=== PATIENT | female | born 1975 | race American Indian/Alaskan Native ===

== ENCOUNTER 2019-05-30 09:04 | Inpatient (IN) | payer SELFPAY ==
[2019-05-30 09:52] LABS: Basophils % (Auto) 0.1 % (0.0-1.8); Eosinophils % (Auto) 0.2 % (0.0-4.3); Hematocrit 39.7 % (30.3-42.9); Hemoglobin 13.2 gm/dl (10.1-14.3); Lymphocytes # (Auto) 1.8 K/mm3 (1.2-5.4); Lymphocytes % (Auto) 29.7 % (13.4-35.0); Mean Corpuscular HGB Conc 33 % (30-34); Mean Corpuscular Volume 88 fl (79-97); Monocytes # (Auto) 0.4 K/mm3 (0.0-0.8); Monocytes % (Auto) 6.5 % (0.0-7.3); Platelet Count 220 K/mm3 (140-440)
[2019-05-30 10:12] LABS: Alanine Aminotransferase 42 units/L (7-56); Albumin 3.7 g/dL (3.9-5); BUN/Creatinine Ratio 22; Blood Urea Nitrogen 13 mg/dL (7-17); Calcium 9.9 mg/dL (8.4-10.2); Hemolysis Index 8
[2019-05-30] MEDS ORDERED: ZOFRAN IV ONE (10:16)
[2019-05-30] MEDS ORDERED: HumuLIN R IV ONE (10:16)
[2019-05-30] MEDS ORDERED: NACL 0.9% 1000 ML 1,000 ML IV ONE ×2 (10:16→12:35)
--- NOTE | 2019-05-30 10:20 | Emergency Department Report ---
ED General Adult HPI - General Chief complaint: Nausea/Vomiting/Diarrhea Stated complaint: LIGHTHEADED/DIZZINESS/SOB Time Seen by Provider: 05/30/19 10:12 Source: patient Mode of arrival: Ambulatory Limitations: No Limitations - History of Present Illness Initial comments: Patient is 44 years old female with history of hypertension and diabetes. Patient is noncompliant with her medication. Patient stated that the last time she took her insulin was 3 years ago. Patient presented to the ER complaining of generalized weakness and not feeling good associated with some dizziness. Patient is also complaining of nausea vomiting. Patient denied any fever or chills recently. Patient also denied any loss of consciousness, focal weakness numbness or tingling sensation. - Related Data Previous Rx's Medication Instructions Recorded Last Taken Type Butalb/Acetamin/Caff 50-325-40 2 tab PO Q8HR PRN #10 tablet 08/10/17 Unknown Rx [Fioricet] amLODIPine [Norvasc] 5 mg PO DAILY #90 tab 08/10/17 Unknown Rx Allergies Allergy/AdvReac Type Severity Reaction Status Date / Time No Known Allergies Allergy Verified 05/30/19 09:07 ED Review of Systems ROS: Stated complaint: LIGHTHEADED/DIZZINESS/SOB Other details as noted in HPI Comment: All other systems reviewed and negative Constitutional: denies: chills, fever ENT: denies: ear pain Cardiovascular: palpitations. denies: chest pain Gastrointestinal: nausea, vomiting. denies: abdominal pain, diarrhea, constipation, hematemesis, melena, hematochezia Musculoskeletal: denies: back pain Neurological: weakness. denies: headache, numbness, paresthesias, confusion, abnormal gait ED Past Medical Hx - Past Medical History Hx Hypertension: Yes Hx Diabetes: Yes - Surgical History Additional Surgical History: Back surgery, - Social History Smoking Status: Current Some Day Smoker Substance Use Type: Alcohol - Medications Home Medications: Home Medications Medication Instructions Recorded Confirmed Last Taken Type Butalb/Acetamin/Caff 50-325-40 2 tab PO Q8HR PRN #10 tablet 08/10/17 Unknown Rx [Fioricet] amLODIPine [Norvasc] 5 mg PO DAILY #90 tab 08/10/17 Unknown Rx ED Physical Exam - General Limitations: No Limitations General appearance: alert, in no apparent distress - Head Head exam: Present: atraumatic, normocephalic, normal inspection - ENT ENT exam: Present: mucous membranes dry - Neck Neck exam: Present: normal inspection, full ROM. Absent: tenderness, meningismus, lymphadenopathy, thyromegaly - Respiratory Respiratory exam: Present: normal lung sounds bilaterally - Cardiovascular Cardiovascular Exam: Present: tachycardia. Absent: systolic murmur, diastolic murmur, rubs, gallop - GI/Abdominal GI/Abdominal exam: Present: soft, normal bowel sounds. Absent: distended, tenderness, guarding, rebound, rigid, organomegaly, mass, bruit, pulsatile mass, hernia - Extremities Exam Extremities exam: Present: normal inspection, full ROM, normal capillary refill. Absent: tenderness, pedal edema, joint swelling, calf tenderness - Back Exam Back exam: Present: normal inspection, full ROM. Absent: CVA tenderness (R), CVA tenderness (L), muscle spasm, paraspinal tenderness, vertebral tenderness, rash noted - Neurological Exam Neurological exam: Present: alert, oriented X3, CN II-XII intact, normal gait, reflexes normal - Psychiatric Psychiatric exam: Present: normal mood - Skin Skin exam: Present: warm, intact, normal color ED Course Vital Signs 05/30/19 05/30/19 05/30/19 09:15 09:52 10:00 Temperature 98.3 F Pulse Rate 134 H 122 H 123 H Respiratory 16 20 15 Rate Blood Pressure 139/83 Blood Pressure 158/60 [Left] O2 Sat by Pulse 98 99 Oximetry 05/30/19 05/30/19 05/30/19 10:15 10:30 10:45 Temperature Pulse Rate 124 H 116 H 122 H Respiratory 11 L 24 20 Rate Blood Pressure 150/88 139/79 139/79 Blood Pressure [Left] O2 Sat by Pulse 98 99 Oximetry 05/30/19 05/30/19 05/30/19 11:00 11:15 11:30 Temperature Pulse Rate 125 H 126 H 126 H Respiratory 20 25 H 20 Rate Blood Pressure 141/70 155/62 133/63 Blood Pressure [Left] O2 Sat by Pulse 100 98 Oximetry 05/30/19 05/30/19 05/30/19 11:45 12:01 12:15 Temperature Pulse Rate 134 H 132 H Respiratory 17 14 10 L Rate Blood Pressure 133/64 133/64 133/64 Blood Pressure [Left] O2 Sat by Pulse 97 97 99 Oximetry 05/30/19 05/30/19 05/30/19 12:31 13:30 13:44 Temperature 99.1 F Pulse Rate 130 H Respiratory 16 16 Rate Blood Pressure 133/64 139/86 Blood Pressure [Left] O2 Sat by Pulse 98 100 99 Oximetry 05/30/19 05/30/19 05/30/19 13:45 14:00 14:15 Temperature Pulse Rate 128 H 126 H 126 H Respiratory 19 17 18 Rate Blood Pressure 139/86 166/93 171/93 Blood Pressure [Left] O2 Sat by Pulse 97 93 Oximetry 05/30/19 05/30/19 05/30/19 14:30 14:45 15:00 Temperature Pulse Rate 125 H 122 H 121 H Respiratory 18 17 17 Rate Blood Pressure 171/91 171/91 172/97 Blood Pressure [Left] O2 Sat by Pulse 95 98 Oximetry 05/30/19 05/30/19 05/30/19 15:15 15:31 15:45 Temperature Pulse Rate 124 H 121 H 120 H Respiratory 17 17 29 H Rate Blood Pressure 195/100 149/81 149/81 Blood Pressure [Left] O2 Sat by Pulse 95 94 100 Oximetry 05/30/19 05/30/19 05/30/19 16:00 16:15 16:30 Temperature Pulse Rate 115 H 113 H 114 H Respiratory 17 15 18 Rate Blood Pressure 114/68 128/71 114/69 Blood Pressure [Left] O2 Sat by Pulse 96 Oximetry ED Medical Decision Making - Lab Data Result diagrams: 05/30/19 09:31 05/30/19 09:31 - EKG Data -: EKG Interpreted by Wa EKG shows normal: sinus rhythm Rate: normal - EKG Data Interpretation: no acute changes - Radiology Data Radiology results: report reviewed - Medical Decision Making Patient is 44 years old female with history of hypertension and diabetes. Patient is noncompliant with her medication. Patient stated that the last time she took her insulin was 3 years ago. Patient presented to the ER complaining of generalized weakness and not feeling good associated with some dizziness. Patient is also complaining of nausea vomiting. Patient denied any fever or chills recently. Patient also denied any loss of consciousness, focal weakness numbness or tingling sensation. Patient received 2 L of normal saline, regular insulin. Patient found to be in acute thyrotoxicosis. Patient received labetalol and PTU. Critical care attestation.: If time is entered above; I have spent that time in minutes in the direct care of this critically ill patient, excluding procedure time. ED Disposition Clinical Impression: Nausea & vomiting, Hyperglycemia, Thyrotoxicosis Disposition: OP ADMIT IP TO THIS HOSP Is pt being admited?: Yes Condition: Stable
--- NOTE | 2019-05-30 11:43 | XRay Report ---
CHEST 1 VIEW 05/30/2019 10:20 AM INDICATION / CLINICAL INFORMATION: Hyperglycemia. COMPARISON: None available. FINDINGS: SUPPORT DEVICES: None. HEART / MEDIASTINUM: No significant abnormality. LUNGS / PLEURA: No significant pulmonary or pleural abnormality. No pneumothorax. ADDITIONAL FINDINGS: No significant additional findings. IMPRESSION: 1. No acute findings. Signer Name: Sidney Arshad MD Signed: 05/30/2019 11:39 AM Workstation Name: [id number]
[2019-05-30 13:02] LABS: Bilirubin,Urine NEG (Negative); Blood,Urine SM (Negative); Color,Urine Yellow (Yellow); Protein,Urine <15 mg/dL mg/dL (Negative); RBC,Urine < 1.0 /HPF (0.0-6.0); Urobilinogen,Urine < 2.0 mg/dL (<2.0)
[2019-05-30] MEDS ORDERED: MORPHINE ONE (13:38)
[2019-05-30] MEDS ORDERED: MORPHINE IV ONE (13:39)
[2019-05-30] MEDS ORDERED: TYLENOL ONE (13:39)
[2019-05-30] MEDS ORDERED: TYLENOL PO ONE (13:40)
[2019-05-30] MEDS ORDERED: NORMODYNE IV ONE (15:22)
[2019-05-30 16:31] LABS: Free T4 (Free Thyroxine) 7.63 ng/dL (0.76-1.46)
[2019-05-30] MEDS ORDERED: IBUPROFEN PO ONE ×2 (16:48)
--- NOTE | 2019-05-30 17:46 | Cat Scan Report ---
CT ABDOMEN AND PELVIS WITH CONTRAST HISTORY: Nausea and vomiting for 3 days COMPARISON: None TECHNIQUE: Routine abdominal and pelvic CT exam performed with IV contrast. The patient received 100 mL of IV Omnipaque 300. All CT scans at this location are performed using CT dose reduction for ALARA by means of automated exposure control. FINDINGS: CT ABDOMEN: Lung Bases: No significant abnormality. Liver: No significant abnormality. Biliary: No significant abnormality. Spleen: No significant abnormality. Unenlarged. Pancreas: No significant abnormality. Adrenals: No significant abnormality. Kidneys: No significant abnormality. Lymphatics: No lymphadenopathy. Vasculature: Atherosclerotic but nonaneurysmal abdominal aorta. Bowel/Peritoneum: Nonobstructive bowel. Sigmoid diverticulosis without mesocolonic fat stranding. No free air. No free fluid. Normal appendix. CT PELVIC: : No significant abnormality. Lymphatics: No lymphadenopathy. Osseous Structures: No aggressive appearing osseous lesions. Additional Findings: None IMPRESSION: 1. No acute findings. 2. Sigmoid diverticulosis without diverticulitis. Signer Name: Sidney Arshad MD Signed: 05/30/2019 5:42 PM Workstation Name: [id number]
[2019-05-30] MEDS: TAPAZOLE PO SCH (18:27)
[2019-05-30] MEDS: PROPYLTHIOURACIL PO SCH (20:13)
[2019-05-30] MEDS ORDERED: SODIUM CHLORIDE FLUSH SYRINGE 10 ML IV PRN (20:26)
[2019-05-30] MEDS ORDERED: TYLENOL PO PRN (20:26)
--- NOTE | 2019-05-30 20:30 | History and Physical Report ---
History of Present Illness Chief complaint: I feel dizzy, and I just have not been feeling good History of present illness: 44 YO Female with HTN, DM, Nicotine Dependence, Medication Noncompliance presents to ED for evaluation. Pt states that she has experienced generalized weakness, nausea, dizziness, heat intolerance, nausea, and multiple episodes of vomiting over the past 1 week. Pt acknowledges subjective weight loss, and inability to gain weight. Pt transported to [facility] via private vehicle. Pt seen and evaluated in ED and found to have Thyrotoxicosis, and uncontrolled DM. Pt admitted to medical floor. No prior admission for review. No medication listed for reconciliation at time of admission. Past History Past Medical History: diabetes, hypertension Past Surgical History: Social history: single, smoking Family history: hypertension Medications and Allergies Allergies Allergy/AdvReac Type Severity Reaction Status Date / Time No Known Allergies Allergy Verified 05/30/19 09:07 Home Medications Medication Instructions Recorded Confirmed Last Taken Type Butalb/Acetamin/Caff 50-325-40 2 tab PO Q8HR PRN #10 tablet 08/10/17 Unknown Rx [Fioricet] amLODIPine [Norvasc] 5 mg PO DAILY #90 tab 08/10/17 Unknown Rx Active Meds: Active Medications Acetaminophen (Tylenol) 650 mg PO Q4H PRN PRN Reason: Pain MILD(1-3)/Fever >100.5/FITZGERALD Methimazole (Tapazole) 10 mg PO Q24HR [facility] Last Admin: 05/30/19 18:27 Dose: 10 mg Documented by: Ondansetron HCl (Zofran) 4 mg IV Q8H PRN PRN Reason: Nausea And Vomiting Propylthiouracil (Propylthiouracil) 50 mg PO TID [facility] Last Admin: 05/30/19 20:13 Dose: 50 mg Documented by: Sodium Chloride (Sodium Chloride Flush Syringe 10 Ml) 10 ml IV BID [facility] Sodium Chloride (Sodium Chloride Flush Syringe 10 Ml) 10 ml IV PRN PRN PRN Reason: LINE FLUSH Review of Systems Constitutional: weight loss, weakness, no fever, no chills Ears, nose, mouth and throat: no ear pain, no ear discharge, no tinnitis, no decreased hearing, no nose pain Breasts: no change in shape, no swelling, no mass Cardiovascular: no chest pain, no orthopnea, no palpitations, no rapid/irregular heart beat, no edema, no lightheadedness Respiratory: no cough, no cough with sputum, no shortness of breath Gastrointestinal: nausea, vomiting, no abdominal pain, no change in bowel habits Genitourinary Female: no dysmenorrhea, no pelvic pain, no dysuria, no stress incontinence, no post void dribbling, no incomplete emptying, no mixed incontinence Rectal: no pain, no incontinence, no bleeding Musculoskeletal: no neck stiffness, no neck pain, no shooting arm pain, no arm numbness/tingling, no low back pain, no leg numbness/tingling Integumentary: no rash, no pruritis, no redness, no sores, no wounds, no jaundice, no boils Neurological: no transient paralysis, no paralysis, no weakness, no parathesias, no tingling, no seizures, no syncope Psychiatric: no anxiety, no memory loss, no change in sleep habits, no sleep disturbances, no insomnia, no hypersomnia, no change in appetite Endocrine: heat intolerance, excessive sweating, flushing, weight change, thyroid mass, palpatations Hematologic/Lymphatic: no easy bruising, no easy bleeding, no lymphadenopathy, no lymphedema Allergic/Immunologic: no urticaria, no allergic rhinitis, no wheezing, no p ersistent infections, no anaphylaxis Exam - Constitutional Vitals: Temp Pulse Resp BP Pulse Ox 99.1 F 117 H 19 132/79 100 05/30/19 13:44 05/30/19 17:21 05/30/19 17:21 05/30/19 16:45 05/30/19 17:21 General appearance: Present: mild distress - EENT Eyes: Present: PERRL ENT: hearing intact, clear oral mucosa, other (thyromegaly, Positive Marty Sign) - Neck Neck: Present: supple, normal ROM - Respiratory Respiratory effort: normal Respiratory: bilateral: CTA - Cardiovascular Heart Sounds: Present: S1 & S2. Absent: rub, click - Extremities Extremities: pulses symmetrical, No edema Peripheral Pulses: within normal limits - Abdominal General gastrointestinal: Present: soft, non-tender, non-distended, normal bowel sounds Female genitourinary: Present: normal - Integumentary Integumentary: Present: clear, warm, dry - Musculoskeletal Musculoskeletal: gait normal, strength equal bilaterally - Psychiatric Psychiatric: appropriate mood/affect, intact judgment & insight - Neurologic Neurologic: CNII-XII intact, moves all extremities Results - Labs CBC & Chem 7: 05/31/19 04:40 05/31/19 04:40 Labs: Abnormal lab results 05/30/19 05/30/19 05/30/19 Range/Units 09:22 09:31 10:37 Sodium 134 L (137-145) mmol/L Chloride 93.4 L (98-107) mmol/L Creatinine 0.6 L (0.7-1.2) mg/dL Glucose 483 H (65-100) mg/dL POC Glucose 473 H (70-105) Albumin 3.7 L (3.9-5) g/dL Lipase 71 H (13-60) units/L TSH (0.270-4.200) mlU/mL Free T4 (0.76-1.46) ng/dL 05/30/19 05/30/19 05/30/19 Range/Units 11:28 15:38 19:59 Sodium (137-145) mmol/L Chloride (98-107) mmol/L Creatinine (0.7-1.2) mg/dL Glucose (65-100) mg/dL POC Glucose 222 H 332 H (70-105) Albumin (3.9-5) g/dL Lipase (13-60) units/L TSH < 0.005 L (0.270-4.200) mlU/mL Free T4 7.63 H (0.76-1.46) ng/dL Assessment and Plan - Patient Problems (1) Thyrotoxicosis Current Visit: Yes Status: Acute Qualifiers: Thyrotoxic crisis or storm presence: without thyrotoxic crisis or storm Plan to address problem: IVF resuscitation therapy, thyroid panel, Propanolol scheduled, supportive care, Outpatient endocrinology F/U care,Methimazole daily (2) Diabetes Current Visit: Yes Status: Acute Plan to address problem: ADA diet, sliding scale insulin, accu check, hypoglycemia protocol (3) HTN (hypertension) Current Visit: Yes Status: Acute Qualifiers: Hypertension type: essential hypertension Qualified Code(s): I10 - Essential (primary) hypertension Plan to address problem: monitor bp q shift, supportive care, B nikole therapy (4) Nicotine dependence Current Visit: Yes Status: Acute Qualifiers: Substance use status: in withdrawal Plan to address problem: smoking cessation counseling, +15 minutes, supportive care. (5) DVT prophylaxis Current Visit: Yes Status: Acute Plan to address problem: SCD to BLE while in bed, Pt ambulatory
[2019-05-30] MEDS ORDERED: D50W (25GM) Syringe IV PRN (20:32)
[2019-05-30] MEDS: SODIUM CHLORIDE FLUSH SYRINGE 10 ML IV SCH (23:17)
[2019-05-30] MEDS: NACL 0.45% 1000 ML 1,000 ML IV SCH (23:17)
[2019-05-30] MEDS: INDERAL PO SCH (23:18)
[2019-05-31] MEDS: HumuLIN R SUB-Q SCH ×4 (01:47→17:52)
[2019-05-31 04:53] LABS: Basophils # (Auto) 0.1 K/mm3 (0.0-0.1); Basophils % (Auto) 1.4 % (0.0-1.8); Eosinophils % (Auto) 0.3 % (0.0-4.3); Hematocrit 34.2 % (30.3-42.9); Hemoglobin 11.7 gm/dl (10.1-14.3); Lymphocytes # (Auto) 1.6 K/mm3 (1.2-5.4); Lymphocytes % (Auto) 38.4 % (13.4-35.0); Mean Corpuscular HGB Conc 34 % (30-34); Mean Corpuscular Volume 87 fl (79-97); Monocytes # (Auto) 0.3 K/mm3 (0.0-0.8); Monocytes % (Auto) 7.8 % (0.0-7.3); Platelet Count 178 K/mm3 (140-440); Red Blood Count 3.95 M/mm3 (3.65-5.03); Red Cell Distribution Width 13.6 % (13.2-15.2)
[2019-05-31 05:17] LABS: Alanine Aminotransferase 59 units/L (7-56); Albumin 3.1 g/dL (3.9-5); BUN/Creatinine Ratio 23; Blood Urea Nitrogen 9 mg/dL (7-17); Calcium 9.3 mg/dL (8.4-10.2); Hemolysis Index 0
[2019-05-31] MEDS ORDERED: PEPCID PO ONE (06:45)
[2019-05-31] MEDS: NORCO 5/325 PO PRN ×2 (07:05→14:12)
[2019-05-31] MEDS: NACL 0.45% 1000 ML 1,000 ML IV SCH ×2 (07:47→17:55)
[2019-05-31] MEDS: PROPYLTHIOURACIL PO SCH ×3 (07:47→20:49)
[2019-05-31] MEDS: TAPAZOLE PO SCH (10:07)
[2019-05-31] MEDS: INDERAL PO SCH ×2 (10:07→21:55)
[2019-05-31] MEDS: SODIUM CHLORIDE FLUSH SYRINGE 10 ML IV SCH ×2 (10:09→21:57)
--- NOTE | 2019-05-31 12:01 | Progress Note ---
Assessment and Plan (1) Thyrotoxicosis Current Visit: Yes Status: Acute Qualifiers: Thyrotoxic crisis or storm presence: without thyrotoxic crisis or storm Plan to address problem: IVF resuscitation therapy, thyroid panel, Propanolol scheduled, supportive care, Outpatient endocrinology F/U care,Methimazole daily (2) Diabetes Current Visit: Yes Status: Acute Plan to address problem: ADA diet, sliding scale insulin, accu check, hypoglycemia protocol (3) HTN (hypertension) Current Visit: Yes Status: Acute Qualifiers: Hypertension type: essential hypertension Qualified Code(s): I10 - Essential (primary) hypertension Plan to address problem: monitor bp q shift, supportive care, B nikole therapy (4) Nicotine dependence Current Visit: Yes Status: Acute Qualifiers: Substance use status: in withdrawal Plan to address problem: smoking cessation counseling dine by admitting physician supportive care. (5) DVT prophylaxis Current Visit: Yes Status: Acute Plan to address problem: SCD to BLE while in bed, Pt ambulatory Subjective Date of service: 05/31/19 Objective - Constitutional Vitals: Vital Signs - 12hr 05/31/19 05/31/19 05/31/19 00:08 06:08 06:25 Temperature 98.6 F 98.6 F Pulse Rate 108 H 110 H 106 H Respiratory 18 20 18 Rate Blood Pressure 118/82 189/105 153/90 O2 Sat by Pulse 95 100 100 Oximetry 05/31/19 10:07 Temperature Pulse Rate 108 H Respiratory Rate Blood Pressure 145/85 O2 Sat by Pulse Oximetry - Labs CBC & Chem 7: 05/31/19 04:40 05/31/19 04:40 Labs: Abnormal lab results 05/30/19 05/30/19 05/31/19 Range/Units 15:38 19:59 00:14 WBC (4.5-11.0) K/mm3 Lymph % (Auto) (13.4-35.0) % Arthur % (Auto) (0.0-7.3) % Creatinine (0.7-1.2) mg/dL Glucose (65-100) mg/dL POC Glucose 332 H 307 H (70-105) AST (5-40) units/L ALT (7-56) units/L Total Protein (6.3-8.2) g/dL Albumin (3.9-5) g/dL TSH < 0.005 L (0.270-4.200) mlU/mL Free T4 7.63 H (0.76-1.46) ng/dL 05/31/19 05/31/19 05/31/19 Range/Units 04:40 04:40 06:13 WBC 4.1 L (4.5-11.0) K/mm3 Lymph % (Auto) 38.4 H (13.4-35.0) % Arthur % (Auto) 7.8 H (0.0-7.3) % Creatinine 0.4 L (0.7-1.2) mg/dL Glucose 186 H (65-100) mg/dL POC Glucose 178 H (70-105) AST 56 H (5-40) units/L ALT 59 H (7-56) units/L Total Protein 6.0 L (6.3-8.2) g/dL Albumin 3.1 L (3.9-5) g/dL TSH (0.270-4.200) mlU/mL Free T4 (0.76-1.46) ng/dL
[2019-05-31] MEDS ORDERED: FIORICET PO PRN (14:26)
--- NOTE | 2019-05-31 14:26 | Discharge Summary ---
Providers - Providers Date of Admission: 05/30/19 20:26 Date of discharge: 05/31/19 Attending physician: GEORGINA POLANCO [facility] Condition: Stable Hospital course: 44 YO Female with HTN, DM, Nicotine Dependence, Medication Noncompliance presents to ED for evaluation. Pt states that she has experienced generalized weakness, nausea, dizziness, heat intolerance, nausea, and multiple episodes of vomiting over the past 1 week. Pt acknowledges subjective weight loss, and inability to gain weight. Pt transported to [facility] via private vehicle. Pt seen and evaluated in ED and found to have Thyrotoxicosis, and uncontrolled DM. Pt admitted to medical floor. No prior admission for review. No medication listed for reconciliation at time of admission. (1) Thyrotoxicosis Current Visit: Yes Status: Acute Qualifiers: Thyrotoxic crisis or storm presence: without thyrotoxic crisis or storm Plan to address problem: Methimazole daily--5 mg po tid as outpatient (2) Diabetes Current Visit: Yes Status: Acute Plan to address problem: Not taking any medicine D/c on Metformin 500 mg po bid (3) HTN (hypertension) Current Visit: Yes Status: Acute Qualifiers: Hypertension type: essential hypertension Qualified Code(s): I10 - Essential (primary) hypertension Plan to address problem: Cont antihypertensives D/c on Amlodipine 5 mg po qd (4) Nicotine dependence Current Visit: Yes Status: Acute Qualifiers: Substance use status: in withdrawal Plan to address problem: smoking cessation counseling done by Dr Yi -admitting physician.reemphasized supportive care. Disposition: DC- TO HOME OR SELFCARE Core Measure Documentation - Palliative Care Palliative Care/ Comfort Measures: Not Applicable - Core Measures Any of the following diagnoses?: none Exam - Constitutional Vitals: Temp Pulse Resp BP Pulse Ox 99.5 F 104 H 18 182/103 99 05/31/19 12:12 05/31/19 12:12 05/31/19 12:12 05/31/19 12:12 05/31/19 12:12 General appearance: Present: no acute distress, well-nourished - EENT Eyes: Present: PERRL ENT: hearing intact, clear oral mucosa - Neck Neck: Present: supple, normal ROM - Respiratory Respiratory effort: normal Respiratory: bilateral: CTA - Cardiovascular Heart rate: 98 Rhythm: regular Heart Sounds: Present: S1 & S2. Absent: rub, click - Extremities Extremities: no ischemia, pulses intact, pulses symmetrical, No edema Peripheral Pulses: within normal limits - Abdominal General gastrointestinal: Present: soft, non-tender, non-distended, normal bowel sounds Female genitourinary: Present: normal - Integumentary Integumentary: Present: clear, warm, dry - Musculoskeletal Musculoskeletal: gait normal, strength equal bilaterally - Psychiatric Psychiatric: appropriate mood/affect, intact judgment & insight - Neurologic Neurologic: CNII-XII intact, moves all extremities Plan [facility] [Primary Care Provider] - 3-5 Days DESIRE ADAMS MD [Staff Physician] - 7 Days
[2019-05-31] MEDS: NORVASC PO SCH (16:27)
[2019-05-31] MEDS: ZOFRAN IV PRN (16:27)
[2019-06-01] MEDS ORDERED: APRESOLINE IV PRN (00:16)
[2019-06-01] MEDS: ZOFRAN IV PRN (00:22)
[2019-06-01] MEDS: HumuLIN R SUB-Q SCH ×4 (00:23→18:06)
[2019-06-01] MEDS: NORCO 5/325 PO PRN (00:27)
[2019-06-01] MEDS: PROPYLTHIOURACIL PO SCH ×2 (08:46→13:17)
[2019-06-01] MEDS: INDERAL PO SCH (09:27)
[2019-06-01] MEDS: TAPAZOLE PO SCH (09:27)
[2019-06-01] MEDS: NORVASC PO SCH (09:27)
[2019-06-01] MEDS: SODIUM CHLORIDE FLUSH SYRINGE 10 ML IV SCH (09:28)
[2019-06-01 11:52] VITALS: BP 170/94
== END 2019-06-01 18:30 | disposition home or self-care (01) | DRG 644 ==
LOC: ED 09:04 → 3A 20:26
PROVIDERS: ADMIT Internal Medicine; ATTEND Internal Medicine
DX: E05.90 Thyrotoxicosis, unspecified without thyrotoxic crisis or storm (principal); F17.213 Nicotine dependence, cigarettes, with withdrawal; I10 Essential (primary) hypertension; E11.65 Type 2 diabetes mellitus with hyperglycemia; Z91.14 Patient's other noncompliance with medication regimen; Z82.49 Family history of ischemic heart disease and other diseases of the circulatory system; Z71.6 Tobacco abuse counseling; Z79.84 Long term (current) use of oral hypoglycemic drugs
CPT/HCPCS: 36415; 71045; 74177; 80053; 81001; 82805; 82962; 83690; 84439; 84443; 84484; 84703; 85025; 93005; 93010; 96361; 96374; 96375; 99406; G0378; J1815; J2270; J2405; J7030; Q9967

== ENCOUNTER 2019-11-13 07:31 | Emergency (ER) | payer SELFPAY ==
[2019-11-13] MEDS ORDERED: SODIUM CHLORIDE 0.9% 1000 ML 1,000 ML IV ONE (08:51)
--- NOTE | 2019-11-13 08:51 | Emergency Department Report ---
ED General Adult HPI - General Chief complaint: Upper Respiratory Infection Stated complaint: HEADACHE/CHILLS/COUGH Time Seen by Provider: 11/13/19 08:47 Source: patient Mode of arrival: Ambulatory Limitations: No Limitations - History of Present Illness Initial comments: 44 YO FEMALE COMES TO ER WITH GENERALIZED ACHES, CHILLS, HEADACHE AND POOR APPETITE/WEAKNESS FOR WEEKS. SHE IS UNDER CARE OF HER PCP AND HAD LABS DRAWN ON MONDAY. THEY ARE PENDING. SHE HAS FOLLOW UP APPNT NEXT WEEK. SHE IS DIABETIC AND REPORTS TAKING HER MEDS. BS HIGH ON TRIAGE. MED REC COMPLETED DENIES CHILLS. DENIES CP DENIES SOB NO ABD PAIN NO BACK PAIN NO DYSURIA PMH DM HTN THYROID DZ RX TAPAZOLE INDERAL METFORMIN AMARYL AMBULATORY AND NON TOXIC ON ARRIVAL TO ER -: Gradual, days(s) Consistency: intermittent Improves with: none Worsens with: none Associated Symptoms: denies other symptoms Treatments Prior to Arrival: none - Related Data Previous Rx's Medication Instructions Recorded Last Taken Type Butalb/Acetamin/Caff 50-325-40 2 tab PO Q8HR PRN #10 tablet 08/10/17 Unknown Rx [Fioricet] Methimazole [Tapazole] 5 mg PO Q8H #90 tablet 05/31/19 Unknown Rx Propranolol [Inderal] 10 mg PO Q12HR #60 tablet 05/31/19 Unknown Rx amLODIPine 5 mg PO DAILY #30 tab 05/31/19 Unknown Rx metFORMIN [Glucophage] 500 mg PO BID #60 tablet 05/31/19 Unknown Rx Glimepiride [Amaryl] 1 mg PO QAM #30 tablet 06/01/19 Unknown Rx Allergies Allergy/AdvReac Type Severity Reaction Status Date / Time No Known Allergies Allergy Verified 05/30/19 09:07 ED Review of Systems ROS: Stated complaint: HEADACHE/CHILLS/COUGH Other details as noted in HPI Comment: All other systems reviewed and negative ED Past Medical Hx - Past Medical History Previous Medical History?: Yes Hx Hypertension: Yes Hx CVA: No Hx Heart Attack/AMI: No Hx Diabetes: Yes Hx Deep Vein Thrombosis: No Hx Pulmonary Embolism: No Hx GERD: No Hx Liver Disease: No Hx Renal Disease: No Hx of Cancer: No Hx Sickle Cell Disease: No Hx Arthritis: No Hx Headaches / Migraines: No Hx Seizures: No Hx Kidney Stones: No Hx Psychiatric Treatment: No Hx Asthma: No Hx COPD: No Hx Tuberculosis: No Hx Dementia: No Hx HIV: No - Surgical History Past Surgical History?: Yes Additional Surgical History: Back surgery, - Family History Family history: no significant - Social History Smoking Status: Current Some Day Smoker Substance Use Type: None - Medications Home Medications: Home Medications Medication Instructions Recorded Confirmed Last Taken Type Butalb/Acetamin/Caff 50-325-40 2 tab PO Q8HR PRN #10 tablet 08/10/17 06/01/19 Unknown Rx [Fioricet] Methimazole [Tapazole] 5 mg PO Q8H #90 tablet 05/31/19 Unknown Rx Propranolol [Inderal] 10 mg PO Q12HR #60 tablet 05/31/19 Unknown Rx amLODIPine 5 mg PO DAILY #30 tab 05/31/19 Unknown Rx metFORMIN [Glucophage] 500 mg PO BID #60 tablet 05/31/19 Unknown Rx Glimepiride [Amaryl] 1 mg PO QAM #30 tablet 06/01/19 Unknown Rx ED Physical Exam - General Limitations: No Limitations General appearance: alert, in no apparent distress - Head Head exam: Present: atraumatic, normocephalic - Eye Eye exam: Present: normal appearance - ENT ENT exam: Present: mucous membranes moist - Neck Neck exam: Present: normal inspection - Respiratory Respiratory exam: Present: normal lung sounds bilaterally. Absent: respiratory distress - Cardiovascular Cardiovascular Exam: Present: regular rate, normal rhythm. Absent: systolic murmur, diastolic murmur, rubs, gallop - GI/Abdominal GI/Abdominal exam: Present: soft, normal bowel sounds - Extremities Exam Extremities exam: Present: normal inspection - Back Exam Back exam: Present: normal inspection - Neurological Exam Neurological exam: Present: alert, oriented X3 - Psychiatric Psychiatric exam: Present: normal affect, normal mood - Skin Skin exam: Present: warm, dry, intact, normal color. Absent: rash ED Course Vital Signs 11/13/19 11/13/19 07:45 11:58 Temperature 98.2 F 98.3 F Pulse Rate 119 H 97 H Respiratory 18 18 Rate Blood Pressure 136/88 139/85 [Right] O2 Sat by Pulse 98 99 Oximetry ED Medical Decision Making - Lab Data Result diagrams: 11/13/19 09:04 11/13/19 09:04 - EKG Data EKG shows normal: sinus rhythm Rate: normal - EKG Data When compared to previous EKG there are: no significant change Interpretation: no acute changes - Radiology Data Radiology results: report reviewed, image reviewed - Medical Decision Making Lab Results 11/13/19 11/13/19 11/13/19 Range/Units 09:04 09:04 09:04 WBC 3.7 L (4.5-11.0) K/mm3 RBC 4.58 (3.65-5.03) M/mm3 Hgb 14.5 H (10.1-14.3) gm/dl Hct 42.8 (30.3-42.9) % MCV 93 (79-97) fl MCH 32 (28-32) pg MCHC 34 (30-34) % RDW 14.7 (13.2-15.2) % Plt Count 198 (140-440) K/mm3 Lymph % (Auto) 20.9 (13.4-35.0) % Graham % (Auto) 11.2 H (0.0-7.3) % Eos % (Auto) 0.1 (0.0-4.3) % Baso % (Auto) 0.6 (0.0-1.8) % Lymph # 0.8 L (1.2-5.4) K/mm3 Graham # 0.4 (0.0-0.8) K/mm3 Eos # 0.0 (0.0-0.4) K/mm3 Baso # 0.0 (0.0-0.1) K/mm3 Seg Neutrophils % 67.2 (40.0-70.0) % Seg Neutrophils # 2.5 (1.8-7.7) K/mm3 VBG pH (7.320-7.420) Sodium 137 (137-145) mmol/L Potassium 3.8 (3.6-5.0) mmol/L Chloride 100.6 (98-107) mmol/L Carbon Dioxide 19 L (22-30) mmol/L Anion Gap 21 mmol/L BUN 15 (7-17) mg/dL Creatinine 1.2 (0.7-1.2) mg/dL Estimated GFR 59 ml/min BUN/Creatinine Ratio 13 % Glucose 302 H (65-100) mg/dL Calcium 9.1 (8.4-10.2) mg/dL Total Bilirubin 0.30 (0.1-1.2) mg/dL AST 42 H (5-40) units/L ALT 41 (7-56) units/L Alkaline Phosphatase 82 (35-129) units/L Troponin T < 0.010 (0.00-0.029) ng/mL Total Protein 7.5 (6.3-8.2) g/dL Albumin 3.8 L (3.9-5) g/dL Albumin/Globulin Ratio 1.0 % TSH 2.930 (0.270-4.200) mlU/mL Urine Color (Yellow) Urine Turbidity (Clear) Urine pH (5.0-7.0) Ur Specific [place] (1.003-1.030) Urine Protein (Negative) mg/dL Urine Glucose (UA) (Negative) mg/dL Urine Ketones (Negative) mg/dL Urine Blood (Negative) Urine Nitrite (Negative) Urine Bilirubin (Negative) Urine Urobilinogen (<2.0) mg/dL Ur Leukocyte Esterase (Negative) Urine WBC (Auto) (0.0-6.0) /HPF Urine RBC (Auto) (0.0-6.0) /HPF U Epithel Cells (Auto) (0-13.0) /HPF Urine Bacteria (Auto) (Negative) /HPF Urine Mucus /HPF Urine HCG, Qual (Negative) 11/13/19 11/13/19 Range/Units 09:04 12:01 WBC (4.5-11.0) K/mm3 RBC (3.65-5.03) M/mm3 Hgb (10.1-14.3) gm/dl Hct (30.3-42.9) % MCV (79-97) fl MCH (28-32) pg MCHC (30-34) % RDW (13.2-15.2) % Plt Count (140-440) K/mm3 Lymph % (Auto) (13.4-35.0) % Graham % (Auto) (0.0-7.3) % Eos % (Auto) (0.0-4.3) % Baso % (Auto) (0.0-1.8) % Lymph # (1.2-5.4) K/mm3 Graham # (0.0-0.8) K/mm3 Eos # (0.0-0.4) K/mm3 Baso # (0.0-0.1) K/mm3 Seg Neutrophils % (40.0-70.0) % Seg Neutrophils # (1.8-7.7) K/mm3 VBG pH 7.333 (7.320-7.420) Sodium (137-145) mmol/L Potassium (3.6-5.0) mmol/L Chloride (98-107) mmol/L Carbon Dioxide (22-30) mmol/L Anion Gap mmol/L BUN (7-17) mg/dL Creatinine (0.7-1.2) mg/dL Estimated GFR ml/min BUN/Creatinine Ratio % Glucose (65-100) mg/dL Calcium (8.4-10.2) mg/dL Total Bilirubin (0.1-1.2) mg/dL AST (5-40) units/L ALT (7-56) units/L Alkaline Phosphatase (35-129) units/L Troponin T (0.00-0.029) ng/mL Total Protein (6.3-8.2) g/dL Albumin (3.9-5) g/dL Albumin/Globulin Ratio % TSH (0.270-4.200) mlU/mL Urine Color Yellow (Yellow) Urine Turbidity Slightly-cloudy (Clear) Urine pH 5.0 (5.0-7.0) Ur Specific [place] 1.016 (1.003-1.030) Urine Protein 30 mg/dl (Negative) mg/dL Urine Glucose (UA) 50 (Negative) mg/dL Urine Ketones Neg (Negative) mg/dL Urine Blood Sm (Negative) Urine Nitrite Neg (Negative) Urine Bilirubin Neg (Negative) Urine Urobilinogen < 2.0 (<2.0) mg/dL Ur Leukocyte Esterase Neg (Negative) Urine WBC (Auto) 7.0 H (0.0-6.0) /HPF Urine RBC (Auto) 3.0 (0.0-6.0) /HPF U Epithel Cells (Auto) 3.0 (0-13.0) /HPF Urine Bacteria (Auto) 1+ (Negative) /HPF Urine Mucus Few /HPF Urine HCG, Qual Negative (Negative) Vital Signs 11/13/19 11/13/19 07:45 11:58 Temperature 98.2 F 98.3 F Pulse Rate 119 H 97 H Respiratory 18 18 Rate Blood Pressure 136/88 139/85 [Right] O2 Sat by Pulse 98 99 Oximetry NS/INSULIN WITH DEC BLOOD SUGAR LABS NOTED EKG NOTED XRAY NOTED HR HAS DECREASED WITH IVF AMBULATORY NON ILL NON TOXIC ON DC PT EDUCATED ON LABS AND WORK UP WILL DC HOME AND SHE WILL FOLLOW UP WITH HER PCP SCHEDULED. - Differential Diagnosis DKA/HYPERGLYCEMIA/UTI Critical care attestation.: If time is entered above; I have spent that time in minutes in the direct care of this critically ill patient, excluding procedure time. ED Disposition Clinical Impression: Hyperglycemia, Diabetes Disposition: DC-01 TO HOME OR SELFCARE Is pt being admited?: No Does the pt Need Aspirin: No Condition: Stable Instructions: Diabetes Mellitus Type 2 in Adults (ED) Additional Instructions: stay well hydrated continue your home meds per routine diabetic diet follow up with pcp as scheduled referral to our pcp below Referrals: DOMINICK GUDINO MD [Primary Care Provider] - 3-5 Days CATE CRABTREE MD [Staff Physician] - 3-5 Days Time of Disposition: 13:09
[2019-11-13 09:41] LABS: Basophils % (Auto) 0.6 % (0.0-1.8); Eosinophils % (Auto) 0.1 % (0.0-4.3); Hematocrit 42.8 % (30.3-42.9); Hemoglobin 14.5 gm/dl (10.1-14.3); Lymphocytes # (Auto) 0.8 K/mm3 (1.2-5.4); Lymphocytes % (Auto) 20.9 % (13.4-35.0); Mean Corpuscular HGB Conc 34 % (30-34); Mean Corpuscular Volume 93 fl (79-97); Monocytes # (Auto) 0.4 K/mm3 (0.0-0.8); Monocytes % (Auto) 11.2 % (0.0-7.3); Platelet Count 198 K/mm3 (140-440); Red Blood Count 4.58 M/mm3 (3.65-5.03); Red Cell Distribution Width 14.7 % (13.2-15.2)
[2019-11-13 10:07] LABS: BUN/Creatinine Ratio 13; Blood Urea Nitrogen 15 mg/dL (7-17)
[2019-11-13 10:08] LABS: Alanine Aminotransferase 41 units/L (7-56); Albumin 3.8 g/dL (3.9-5); Calcium 9.1 mg/dL (8.4-10.2); Hemolysis Index 3
[2019-11-13] MEDS: INSULIN REGULAR, HUMAN 100 UNITS/1 ML IV ONE ×2 (11:24→11:47)
[2019-11-13] MEDS ORDERED: INSULIN REGULAR, HUMAN 100 UNITS/1 ML IV ONE (11:45)
[2019-11-13 12:00] VITALS: BP 139/85
[2019-11-13 12:30] LABS: Bacteria,Urine 1+ /HPF (Negative); Bilirubin,Urine NEG (Negative); Blood,Urine SM (Negative); Color,Urine Yellow (Yellow); Mucus,Urine FEW /HPF; Urobilinogen,Urine < 2.0 mg/dL (<2.0)
[2019-11-13 12:32] LABS: HCG Qualitative,Urine Negative (Negative)
[2019-11-13] MEDS ORDERED: KETOROLAC 30 MG/1 ML INJ IV ONE (13:10)
--- NOTE | 2019-11-13 13:24 | XRay Report ---
CHEST 2 VIEWS INDICATION: sob. COMPARISON: 05/30/2019. FINDINGS: Support devices: None. Heart: Within normal limits. Lungs/Pleura: No acute air space or interstitial disease. No significant pleural effusion. IMPRESSION: No acute findings. Signer Name: jO Vidal MD Signed: 11/13/2019 1:19 PM Workstation Name: [id number]
== END 2019-11-13 13:43 | disposition home or self-care (01) ==
LOC: ED 07:31
DX: E11.65 Type 2 diabetes mellitus with hyperglycemia (principal); I10 Essential (primary) hypertension; F17.200 Nicotine dependence, unspecified, uncomplicated; Z79.899 Other long term (current) drug therapy
CPT/HCPCS: 36415; 71046; 80053; 81001; 81025; 82805; 84443; 84484; 85025; 93005; 93010; 96361; 96374; 96375; 99284; J1885; J7030; J1815